=== PATIENT | male | born 1985 | race Caucasian/White ===

== ENCOUNTER → 2020-09-28 15:17 | Outpatient (CLI) | payer OTHER, SELFPAY ==
[2020-09-28] MEDS: COVID-19 VACC #1, MRNA(MOD) 100 MCG/0.5 ML VIAL IM (15:32)
== END ==
PROVIDERS: PCP Internal Medicine; Visit Provider Internal Medicine
DX: Z23 Encounter for immunization (principal)
CPT/HCPCS: 0011A; 91301

== ENCOUNTER → 2020-11-03 15:34 | Outpatient (CLI) | payer OTHER, SELFPAY ==
[2020-11-03] MEDS: COVID-19 VACC #2, MRNA(MOD) 100 MCG/0.5 ML VIAL IM (15:40)
== END ==
PROVIDERS: PCP Internal Medicine; Visit Provider Internal Medicine
DX: Z23 Encounter for immunization (principal)
CPT/HCPCS: 0012A; 91301

== ENCOUNTER → 2023-11-05 08:31 | Outpatient (CLI) | payer OTHER, SELFPAY ==
[2023-11-05 09:50] LABS: Alanine Aminotransferase 18 IU/L (<50); Albumin 4.4 g/dL (3.5-5.0); Albumin Globulin Ratio 1.4 (1.0-2.8); Alkaline Phosphatase 77 U/L (38-126); Aspartate Aminotransferase 22 IU/L (17-59); BUN Creatinine Ratio 20.2 (6-22); Bilirubin Total 1.1 mg/dL (0.2-1.3); Blood Urea Nitrogen 19 mg/dL (9-20); Calcium 9.6 mg/dL (8.4-10.2); Carbon Dioxide 27 mmol/L (22-32); Chloride 109 mmol/L (98-107); Cholesterol 172 mg/dL (140-199); Estimated Glomerular Filt Rate > 60 mL/min (>60); Globulin 3.1 g/dL (1.7-4.1); Glucose 102 mg/dL (70-100); HDL Cholesterol 49 mg/dL (40-60); HEMOLYSIS < 15 (0-50); LDL Cholesterol Calculated 102 mg/dL (<100); Potassium 4.2 mmol/L (3.4-5.1); Sodium 141 mmol/L (137-145); Total Protein 7.5 g/dL (6.3-8.2); Triglycerides 107 mg/dL (35-150)
[2023-11-05 10:47] LABS: HIV 1 & 2 Ab/Ag 4th Gen Combo NEGATIVE (NEGATIVE); Hep C Virus Ab w/Reflex Quant NEGATIVE s/c (NEGATIVE)
== END ==
PROVIDERS: PCP Family Medicine; Referring Provider Family Medicine; Visit Provider Family Medicine
DX: Z00.00 Encounter for general adult medical examination without abnormal findings (principal); Z11.59 Encounter for screening for other viral diseases; Z11.4 Encounter for screening for human immunodeficiency virus [HIV]
CPT/HCPCS: 36415; 80053; 80061; 86803; 87389

== ENCOUNTER 2024-05-26 10:45 | Day surgery (SDC) | payer OTHER, SELFPAY ==
[2024-05-20 07:39] VITALS: BMI 22.8
--- NOTE | 2024-05-26 | PATH_ITS ---
[facility] Accession Number: [id number] No. of containers..01 Tissue . 01 Material submitted: . flank - LEFT FLANK LIPOMAS . 01 Diagnosis: LEFT FLANK LIPOMAS, EXCISION: Mature adipose tissue with associated small capillary vessels and occasional thrombi, consistent with benign angiolipomas. Negative for atypia and malignancy. V 05/28/2024 1528 Local . 01 Comment: As part of ongoing manager quality, selected slides are also reviewed by Dr. Libby Hu, who agrees with the interpretation. . 01 Electronically signed: . Ben Arredondo MD, Pathologist NPI- [id number] . 01 Gross description: . Received in formalin with two patient identifiers and left flank lipomas, are six bowers and yellow lobulated soft tissue fragments with no skin grossly identified ranging from 4.4 x 3.2 x 1.4 cm to 6.9 x 5.7 x 2.6 cm. All differentially inked and sectioned to reveal a smooth yellow solid cut surface. [employer] sections submitted in cassettes A1-A5. ([id number]) /DEREJE 05/27/2024 0934 Local . 01 Pathologist provided ICD-10: D17.9, E88.2 . 01 CPT . 642394 Specimen Comment: A courtesy copy of this report has been sent to [phone] Performed at: [address] [facility] [address], [place], [place] [id number] MD Ritesh Laguna MD Phone: [phone]
[2024-05-26] MEDS: LACTATED RINGERS 1,000 ML 42 ML IV (10:57)
[2024-05-26 11:05] VITALS: BP 106/66; PULSE 76; RESP 16; TEMP 36.9; O2SAT 96; BMI 22.8
--- NOTE | 2024-05-26 11:15 | PM.PREOP ---
Pre-operative Note COVID-19 COVID-19 status: Not tested Interval Note History & Physical reviewed/Exam performed by Physician: Yes Changes to H&P: No ASA Class (for procedural sedation): I
[2024-05-26] MEDS: ACETAMINOPHEN 325 MG TABLET 975 MG PO (11:17)
--- NOTE | 2024-05-26 11:17 | SUR.OPER ---
Lateral on a PILLOWS, head on pillow, gel axillary roll in place, bottom leg bent with gel pad under knee to foot, upper leg straight and supported with pillows. Upper arm supported by pillows and secured over bottom arm to padded arm board. Safety belt at hip, tape over blanket lower legs.
[2024-05-26] MEDS: CEFAZOLIN 2 GM/100 ML PREMIX 100 ML IV (11:46)
[2024-05-26] MEDS: BUPIVACAINE 0.5% W/ EPI (PF) 30 ML VIAL INJ (12:29)
--- NOTE | 2024-05-26 12:59 | PM.OP.1 ---
Operative Date/Time/Diagnoses Date of procedure: 05/26/24 Time of procedure: 12:59 Pre-op diagnosis: Lipomatosis Post-op diagnosis: same Procedure & Clinicians Procedure: Excisional biopsy of multiple lipomas from the left flank Same procedure as scheduled: Yes Surgeon: Keo Singleton Automobile Dealer: Johnny Ramey Anesthesia Type: General Operative Notes Procedure in detail: The patient is a 38-year-old man who presented with lipomatosis. He desires removal of several lipomas from his left flank. The patient was marked in the preoperative holding area and 5 lipomas were identified in the left flank between the mid axillary line laterally, the anterior superior iliac spine inferiorly, the umbilicus anteriorly and the nipple superiorly. We started with the largest lipoma. We made a 5 cm incision over the mass. We dissected down to the lipoma which was easily mobilized from the surrounding tissue. The deepest aspect of the lipoma reached the fascia and was about 5 cm in diameter.. It was removed EN bloc. We injected some additional local into the deep muscle fascia. We then moved onto the second largest lipoma which was just superior to the first. This was a 4 cm incision and the mass was about 4 cm in diameter. There was an additional 3 cm mass in the posterior tissue which was excised through the same incision. We injected some additional local into the deep muscle fascia. We then moved onto the most superior lipoma. This was a 4 cm incision and the mass was about 4 cm in diameter. We then moved onto the 2 anterior lipomas which were also about 4 cm in diameter and were removed through a 4 cm incision. All the specimens were sent together. We then closed all the incisions in layers using multiple interrupted 3-0 Vicryl dermal sutures and a running 4-0 Monocryl subcuticular closure. Steri-Strips and dressings were applied. EBL: 10 mL Specimens: Multiple left flank lipomas Johnny JACINTO provided assistance with exposure, retraction and closure of incisions. Post-operative Condition: stable Disposition: PACU
[2024-05-26 13:15] VITALS: BP 103/65; PULSE 79; RESP 20; TEMP 37.2; O2SAT 95
[2024-05-26 13:20] VITALS: BP 109/66; PULSE 80; RESP 15; TEMP 37.1; O2SAT 97
[2024-05-26 13:25] VITALS: BP 111/69; PULSE 93; RESP 15; TEMP 37.1; O2SAT 97
[2024-05-26 13:30] VITALS: BP 116/70; PULSE 84; RESP 16; TEMP 37; O2SAT 98
== END 2024-05-26 13:44 | disposition home or self-care (01) ==
PROVIDERS: PCP Family Medicine; Referring Provider Surgery; Visit Provider Surgery
PROC: (CPT 21931; principal; 2024-05-26 12:00)
DX: E88.2 Lipomatosis, not elsewhere classified (principal)
CPT/HCPCS: 21931 ×4; J0690; J1100; J1885; J2250; J2405; J2704; J3010